=== PATIENT | male | born 1980 ===

== ENCOUNTER → 2024-05-16 11:52 | Outpatient (REF) | payer BC, SELFPAY | LOC: DHSLP 11:52 | PROVIDERS: ATTENDING PHYSICIAN Internal Medicine; FAMILY PHYSICIAN Family Medicine | DX: G47.19 Other hypersomnia (principal); R06.83 Snoring | CPT/HCPCS: 95800 ==

== ENCOUNTER → 2024-08-08 08:06 | Outpatient (REF) | payer BC, SELFPAY | LOC: DHSLP 08:06 | PROVIDERS: ATTENDING PHYSICIAN Internal Medicine; FAMILY PHYSICIAN Family Medicine | DX: G47.33 Obstructive sleep apnea (adult) (pediatric) (principal); G47.61 Periodic limb movement disorder; G47.00 Insomnia, unspecified | CPT/HCPCS: 95810 ==